=== PATIENT | female | born 1965 | race Caucasian/White ===

== ENCOUNTER → 2016-04-03 | Outpatient (CLI) | payer BC | LOC: GMAL 11:06 | PROVIDERS: ATTEND Family Medicine | DX: E55.9 Vitamin D deficiency, unspecified (principal) ==

== ENCOUNTER → 2016-06-08 | Outpatient (CLI) | payer BC | END | disposition home or self-care (01) | LOC: LAB.O 09:59 | PROVIDERS: ATTEND Internal Medicine Nephrology | DX: N18.3 Chronic kidney disease, stage 3 (moderate) (principal); Z92.25 Personal history of immunosuppression therapy; Z94.0 Kidney transplant status ==

== ENCOUNTER → 2016-06-29 | Outpatient (CLI) | payer BC ==
--- NOTE | 2016-06-29 16:19 | US ---
History: Edema. Left lower extremity venous Doppler: Linear transducer exam confirms normal color Doppler fill-in, augmentation and compression in the common femoral, superficial femoral and popliteal veins. IMPRESSION: No sonographic evidence suggestive of deep venous thrombus in the left lower extremity. Electronically signed by: Darcy Carranza MD 06/29/2016 4:19 PM CDT
--- NOTE | 2016-06-29 17:06 | RAD ---
EXAM DESCRIPTION: Foot,Left 3 Views CLINICAL HISTORY: 51 years, Female, PAIN COMPARISON: None TECHNIQUE: AP, lateral, and oblique views of the left foot FINDINGS: There is a nondisplaced transverse fracture in the proximal shaft of the third metatarsal with some sclerosis surrounding sclerosis and periosteal response consistent with either a healing traumatic or stress fracture. Complete bony union is not apparent. The bones appear osteopenic or osteoporotic. Extensive vascular calcification is present. IMPRESSION: Healing fracture in the proximal shaft of the third metatarsal with residual transverse fracture line consistent with a healing stress or traumatic fracture. Diffuse osteoporosis/osteopenia is evident. Electronically signed by: Meir Nickerson MD 06/29/2016 5:05 PM CDT
== END | disposition home or self-care (01) ==
LOC: RAD 08:13
PROVIDERS: ATTEND Orthopaedic Surgery
DX: M79.671 Pain in right foot (principal)

== ENCOUNTER → 2016-08-25 | Outpatient (CLI) | payer BC, SELFPAY ==
--- NOTE | 2016-08-28 11:40 | MRI ---
EXAM DESCRIPTION: MRI left foot/ankle CLINICAL HISTORY: Foot pain. Diabetic. Trauma, dropped brick on top of the foot with fracture. Pain and swelling COMPARISON: None. TECHNIQUE: Multiplanar, multisequence MR images of the left foot and ankle FINDINGS: Comma shaped morphology of the navicular consistent with sequela of Jeanne Brantley. Osteonecrotic segment of the proximal lateral navicular is best measured on axial images and sagittal images involving approximately 2.6 x 1.8 cm proximal articular surface. Osteonecrosis with subchondral collapse. The depth of the osteonecrotic segment is about 1 cm. Evidence of fragmentation and dorsal subluxation of the lateral navicular fragment and extensive marrow edema throughout the medial navicular Osteonecrosis of the medial two thirds of the talar head with approximate measurements of the osteonecrotic segment about 1.8 cm transverse by 1.9 cm craniocaudal. Collapse of the subchondral bone the depth of which is roughly estimated at 7 mm. Extensive marrow edema throughout the talar head neck extending into the body sparing the talar dome. Effusion and synovitis at the talonavicular joint Multifocal marrow edema is also present primarily affecting the cuboid, lateral and middle cuneiform and to lesser extent small regions of the medial cuneiform and the anterior calcaneus. No evidence of neuropathic arthropathy of the tarsometatarsal joints. No focal osteochondral lesion calcaneocuboid, subtalar or tibiotalar. Os trigonum Large well-corticated plantar calcaneal spur with chronic middle bundle plantar fascial thickening. Intrafascial edema, acute on chronic fasciitis without fluid signal intensity to diagnose tear. Minimal edema in the calcaneal spur Dorsiflexion tendons and Achilles tendon are normal. Insertional posterior tibial tendinosis. Flexor digitorum and flexor hallucis tendons are intact. Peroneal tendons are intact No acute ankle ligament injury. 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 Osteonecrotic fragment involving the mid to lateral navicular with fragmentation and dorsal subluxation Osteonecrosis of the head of the talus with subchondral collapse and extensive surrounding marrow edema Electronically signed by: Meir Cook MD 08/28/2016 11:40 AM CDT Workstation: [id number]
== END ==
LOC: MRI 08:47
PROVIDERS: ATTEND Family Medicine
DX: M79.672 Pain in left foot (principal); M87.875 Other osteonecrosis, left foot

== ENCOUNTER → 2016-12-25 | Outpatient (CLI) | payer BC | END | disposition home or self-care (01) | LOC: LAB.O 09:31 | PROVIDERS: ATTEND Internal Medicine Nephrology | DX: R80.0 Isolated proteinuria (principal); Z92.25 Personal history of immunosuppression therapy; Z94.0 Kidney transplant status ==

== ENCOUNTER → 2017-03-07 | Outpatient (CLI) | payer BC | END | disposition home or self-care (01) | LOC: LAB.O 11:30 | PROVIDERS: ATTEND Internal Medicine Nephrology | DX: E83.51 Hypocalcemia (principal) ==

== ENCOUNTER → 2017-03-31 | Outpatient (CLI) | payer BC ==
--- NOTE | 2017-03-31 09:25 | RAD ---
Procedure: XR CHEST 2 VIEWS Exam Date: 03/31/2017 9:15 AM [employer] Ordering Provider: Cindy Payne Clinical Indication: FEVER Comparison: None Findings: The lungs are clear and well-aerated. No pleural effusion or pneumothorax. Cardiac silhouette is normal in size. Impression: No acute pulmonary process. Electronically signed by: Angelica Cobb MD 03/31/2017 9:24 AM [employer]
== END | disposition home or self-care (01) ==
LOC: LAB.O 09:00
PROVIDERS: ATTEND Nurse Practitioner Family
DX: R50.9 Fever, unspecified (principal)

== ENCOUNTER → 2017-09-13 | Outpatient (CLI) | payer BC | LOC: LAB.O 09:15 | PROVIDERS: ATTEND Internal Medicine Nephrology | DX: N18.3 Chronic kidney disease, stage 3 (moderate) (principal); Z94.0 Kidney transplant status ==

== ENCOUNTER → 2017-11-26 | Outpatient (CLI) | payer BC | LOC: LAB.O 08:30 | PROVIDERS: ATTEND Internal Medicine Nephrology | DX: Z94.0 Kidney transplant status (principal) ==

== ENCOUNTER → 2018-06-19 | Outpatient (CLI) | payer BC | LOC: LAB.O 12:31 | PROVIDERS: ATTEND Internal Medicine Nephrology | DX: N18.3 Chronic kidney disease, stage 3 (moderate) (principal) ==

== ENCOUNTER → 2018-10-29 | Outpatient (CLI) | payer BC | LOC: LAB.O 08:17 | PROVIDERS: ATTEND Nurse Practitioner Primary Care | DX: Z94.0 Kidney transplant status (principal); Z92.25 Personal history of immunosuppression therapy ==

== ENCOUNTER → 2019-02-18 | Outpatient (CLI) | payer BC | LOC: LAB.O 10:43 | PROVIDERS: ATTEND Internal Medicine Nephrology | DX: Z94.0 Kidney transplant status (principal); Z92.25 Personal history of immunosuppression therapy ==

== ENCOUNTER → 2019-07-11 | Outpatient (CLI) | payer BC | LOC: LAB.O 09:47 | PROVIDERS: ATTEND Internal Medicine Nephrology | DX: N18.3 Chronic kidney disease, stage 3 (moderate) (principal); Z94.0 Kidney transplant status ==

== ENCOUNTER → 2019-11-17 | Outpatient (CLI) | payer BC | LOC: GMAL 10:18 | PROVIDERS: ATTEND Family Medicine | DX: Z00.00 Encounter for general adult medical examination without abnormal findings (principal); E53.8 Deficiency of other specified B group vitamins; E55.9 Vitamin D deficiency, unspecified ==